=== PATIENT | male | born 1935 | race Caucasian/White ===

== ENCOUNTER → 2020-05-11 | Outpatient (CLI) | payer MEDICARE ==
[~2020-05-11] MED LIST: AMLO-150 PO; ATOR10TA9 PO; LEVO88TA4 PO; SULF1TAB23 PO
[2020-05-11 12:50] LABS: BASOPHILS % (AUTO) 1 % (0-1); EOSINOPHILS % (AUTO) 5 % (1-7); LYMPHOCYTES % (AUTO) 23 % (22-44); MEAN CORPUSCULAR HEMOGLOBIN 30.2 pg (27.5-34.5); MEAN CORPUSCULAR HGB CONC 33.1 g/dL (33.2-36.2); MEAN PLATELET VOLUME 7.2 fL (7.4-10.4); MONOCYTES % (AUTO) 10 % (2-9); NEUTROPHILS % (AUTO) 62 % (42-75); PLATELET COUNT 398 x10^3/uL (130-400); RED BLOOD COUNT 4.07 x10^6/uL (4.38-5.82); RED CELL DISTRIBUTION WIDTH 16.9 % (9.4-14.8)
[2020-05-11 12:53] LABS: INTERNATIONAL NORMALIZED RATIO 1.1 (0.93-1.1); MD NO; PROTHROMBIN TIME 11.6 Seconds (9.6-11.5)
[2020-05-11 12:54] LABS: ANION GAP 9 mmol/L (5-15); CALCIUM 8.7 mg/dL (8.5-10.1); CHLORIDE 112 mmol/L (98-107); CREATININE 1.84 mg/dL (0.7-1.3)
== END | disposition home or self-care (01) ==
LOC: STAR 11:31
PROVIDERS: ATTEND Urology
DX: Z01.812 Encounter for preprocedural laboratory examination (principal); Z20.828 Contact with and (suspected) exposure to other viral communicable diseases; N40.1 Benign prostatic hyperplasia with lower urinary tract symptoms
CPT/HCPCS: 36415; 80048; 85025; 85610; 85730; 87635; 93005

== ENCOUNTER 2020-05-17 10:26 | Day surgery (SDC) | payer MEDICARE ==
[~2020-05-17] VITALS: Ht 177.8 cm; Wt 76.9 kg
[~2020-05-17 10:26] MED LIST changes: +CEFAZOLIN 1,000 MG ONE; +DEXAMETHASONE 4 MG/ML, 1ML ONE; +GLYCOPYRROLATE 0.2MG/1ML, 5ML ONE; +NEOSTIGMINE 1 MG/ML, 10ML ONE; +ONDANSETRON 2MG/ML, 2ML ONE; +PROPOFOL 10 MG/ML, 20ML ONE; +ROCURONIUM 10MG/ML,5ML ONE; +SUCCINYLCHOLINE 20 MG/ML, 10ML ONE
[2020-05-17 10:55] VITALS: BP 173/70
[2020-05-17] MEDS ORDERED: CHLORHEXIDINE 15 ML UDC MM ONE (11:00)
[2020-05-17] MEDS ORDERED: LACTATED RINGERS 1,000 ML IV SCH (11:00)
[2020-05-17] MEDS ORDERED: FENTANYL PF 250 MCG/5ML ONE (11:59)
[2020-05-17] MEDS ORDERED: LORazepam 2 MG/ML, 1ML IVPush PRN (12:00)
[2020-05-17] MEDS ORDERED: hydrALAzine 20 MG/ML, 1ML IV PRN (12:00)
[2020-05-17] MEDS ORDERED: HALOPERIDOL 5 MG/ML IV PRN (12:00)
[2020-05-17] MEDS ORDERED: FENTANYL PF 100 MCG/2ML IV PRN (12:00)
[2020-05-17] MEDS ORDERED: ACETAMINOPHEN 325 MG TABLET PO PRN (12:00)
[2020-05-17] MEDS ORDERED: LABETALOL 5MG/ML, 20ML IV PRN (12:00)
[2020-05-17] MEDS ORDERED: EPHEDRINE 50 MG/ML, 1ML IVPush PRN (12:00)
[2020-05-17] MEDS ORDERED: OXYcodone 5 MG/5 ML ORAL.SOL UDC PO PRN (12:00)
[2020-05-17] MEDS ORDERED: HYDROmorphone 1 MG/ML, 1ML INJ IVPush PRN (12:00)
[2020-05-17] MEDS ORDERED: MEPERIDINE/PF 25MG/0.5ML IVPush PRN (12:00)
[2020-05-17] MEDS ORDERED: METHOCARBAMOL 1,000 MG in DEXTROSE 5% 100 ML IV PRN (12:00)
[2020-05-17] MEDS ORDERED: ONDANSETRON 2MG/ML, 2ML IVPush PRN (12:00)
[2020-05-17] MEDS ORDERED: ONDANSETRON 2MG/ML, 2ML ONE (14:03)
== END 2020-05-17 15:50 | disposition home or self-care (01) ==
LOC: OUT 10:26
PROVIDERS: ATTEND Urology
DX: N40.1 Benign prostatic hyperplasia with lower urinary tract symptoms (principal); R33.8 Other retention of urine; N17.9 Acute kidney failure, unspecified; N39.0 Urinary tract infection, site not specified; C67.9 Malignant neoplasm of bladder, unspecified; I10 Essential (primary) hypertension; Z79.890 Hormone replacement therapy; Z79.899 Other long term (current) drug therapy
CPT/HCPCS: 52601; 88305; J2405; J3010; J7120; J0690; J1100; J2704; J2710; J0330